=== PATIENT | male | born 1965 | race Caucasian/White ===

== ENCOUNTER 2018-01-26 13:16 | Emergency (ER) | payer OTHER ==
[~2018-01-26] VITALS: Ht 170.2 cm; Wt 81.8 kg
[~2018-01-26 13:16] MED LIST: DIVA-78 PO; FISH1CAP49 PO; RISP3 PO
[2018-01-26] MEDS ORDERED: ACET-48 PO (14:12)
[2018-01-26] MEDS ORDERED: BENZ1TAB10 PO (14:12)
[2018-01-26] MEDS ORDERED: LURA80 PO (14:12)
[2018-01-26] MEDS ORDERED: IBUP-2071 PO (14:12)
[2018-01-26] MEDS ORDERED: DIVA250T45 PO (14:12)
[2018-01-26] MEDS ORDERED: LORA2TAB2 PO (14:12)
[2018-01-26] MEDS ORDERED: RISP3 PO (14:12)
[2018-01-26] MEDS ORDERED: THIOT10 PO (14:12)
[2018-01-26] MEDS ORDERED: ASPI-1182 PO (14:12)
[2018-01-26 14:39] LABS: BASOPHILS % (AUTO) 0.6 % (0.0-2.0); EOSINOPHILS % (AUTO) 2.2 % (1.0-6.0); HEMATOCRIT 38.6 % (41-53); HEMOGLOBIN 13.1 g/dL (13.5-17.5); LYMPHOCYTES % (AUTO) 31.5 % (22.0-44.0); MEAN CORPUSCULAR HEMOGLOBIN 29.4 pg (26.0-34.0); MEAN CORPUSCULAR HGB CONC 33.9 G/dL (31.0-37.0); MEAN CORPUSCULAR VOLUME 87 fL (80-100); MONOCYTES # (AUTO) 0.6 K/uL (0.1-1.0); MONOCYTES % (AUTO) 8.7 % (2.0-9.0); NEUTROPHILS # (AUTO) 3.7 K/uL (1.8-7.7); PLATELET COUNT (AUTO) 180 K/uL (150-450); RED BLOOD CELL COUNT(AUTO) 4.45 MIL/uL (4.50-5.90); RED CELL DISTRIBUTION WIDTH 14.2 % (11.5-14.5)
[2018-01-26 14:40] LABS: AMPHET/METH SCREEN,URINE NEGATIVE (NEGATIVE); BARBITURATE SCREEN, URINE NEGATIVE (NEGATIVE); BENZODIAZEPINES SCREEN,URINE NEGATIVE (NEGATIVE); CANNABINOID SCREEN,URINE NEGATIVE (NEGATIVE); COCAINE SCREEN,URINE NEGATIVE (NEGATIVE); METHADONE SCREEN, URINE NEGATIVE (NEGATIVE); OPIATE SCREEN,URINE NEGATIVE (NEGATIVE)
[2018-01-26 14:44] LABS: PHENCYCLIDINE SCREEN,URINE NEGATIVE (NEGATIVE)
[2018-01-26 14:48] LABS: ANION GAP 5 mmol/L (8-16); CALCIUM, TOTAL 8.2 mg/dL (8.8-10.5); CARBON DIOXIDE 28 mmol/L (22-29); CHLORIDE 95 mmol/L (98-107); CREATININE 0.82 mg/dL (0.60-1.30); GLOMERULAR FILTR. RATE CALC > 60 mL/min (>60); GLUCOSE,RANDOM 92 mg/dL (70-110); POTASSIUM 3.5 mmol/L (3.5-5.1); SODIUM SERUM 128 mmol/L (136-145); UREA NITROGEN, BLOOD 2 mg/dL (7-18)
[2018-01-26 14:56] LABS: ALANINE AMINOTRANSFERASE 43 U/L (12-78); ALBUMIN 3.3 g/dL (3.4-5.0); ALKALINE PHOSPHATASE 58 U/L (46-116); ASPARTATE AMINOTRANSFERASE 28 U/L (15-37); BILIRUBIN,TOTAL 0.3 mg/dL (0.1-1.0); TOTAL PROTEIN, SERUM 6.2 g/dL (6.4-8.2); VALPROIC ACID 68 mcg/mL (50-100)
[2018-01-26] MEDS ORDERED: LORazepam 1 MG TABLET PO ONE (15:15)
[2018-01-26] MEDS ORDERED: SODIUM CHLORIDE 1 GM TABLET PO ONE (15:15)
[2018-01-26] MEDS ORDERED: SODIUM CHLORIDE 0.9% 1,000 ML IV ONE (15:15)
[2018-01-26] MEDS ORDERED: ERYTHROMYCIN 0.5% 3.5 GM TUBE OPHTHALMIC OINTMENT OU ONE (16:30)
[2018-01-26 17:21] LABS: ANION GAP 7 mmol/L (8-16); CARBON DIOXIDE 27 mmol/L (22-29); CHLORIDE 102 mmol/L (98-107); CREATININE 0.75 mg/dL (0.60-1.30); GLOMERULAR FILTR. RATE CALC > 60 mL/min (>60); GLUCOSE,RANDOM 129 mg/dL (70-110); POTASSIUM 3.6 mmol/L (3.5-5.1); SODIUM SERUM 136 mmol/L (136-145); UREA NITROGEN, BLOOD 3 mg/dL (7-18)
[2018-01-26 17:33] VITALS: BP 143/95
== END 2018-01-26 17:53 | disposition home or self-care (01) ==
LOC: EDBD 13:17 → EMS 13:17
DX: F20.9 Schizophrenia, unspecified (principal); F41.9 Anxiety disorder, unspecified; H10.9 Unspecified conjunctivitis; E87.1 Hypo-osmolality and hyponatremia; F32.9 Major depressive disorder, single episode, unspecified; F17.210 Nicotine dependence, cigarettes, uncomplicated; Z79.82 Long term (current) use of aspirin; Z79.899 Other long term (current) drug therapy
CPT/HCPCS: 36415; 80048; 80053; 80164; 80307; 85025; 99284; 99406; J7030

== ENCOUNTER 2018-03-10 17:01 | Emergency (ER) | payer OTHER ==
[~2018-03-10] VITALS: Ht 170.2 cm; Wt 81.0 kg
[~2018-03-10 17:01] MED LIST changes: +ACET-48 PO; +ASPI-1182 PO; +BENZ1TAB10 PO; +DIVA250T45 PO; +IBUP-2071 PO; +LORA2TAB2 PO; +LURA80 PO; +THIOT10 PO
[2018-03-10 17:28] LABS: GLUCOSE,POINT OF CARE 145 MG/DL (70-110)
[2018-03-10] MEDS ORDERED: HALOPERIDOL 5 MG TABLET PO ONE (17:30)
[2018-03-10 17:53] LABS: BASOPHILS % (AUTO) 0.6 % (0.0-2.0); EOSINOPHILS % (AUTO) 1.5 % (1.0-6.0); HEMATOCRIT 41.5 % (41-53); HEMOGLOBIN 14.5 g/dL (13.5-17.5); LYMPHOCYTES % (AUTO) 25.7 % (22.0-44.0); MEAN CORPUSCULAR HEMOGLOBIN 30.7 pg (26.0-34.0); MEAN CORPUSCULAR VOLUME 88 fL (80-100); MONOCYTES # (AUTO) 0.8 K/uL (0.1-1.0); MONOCYTES % (AUTO) 10.1 % (2.0-9.0); NEUTROPHILS # (AUTO) 4.9 K/uL (1.8-7.7); NEUTROPHILS % (AUTO) 62.1 % (40.0-70.0); PLATELET COUNT (AUTO) 237 K/uL (150-450); RED BLOOD CELL COUNT(AUTO) 4.74 MIL/uL (4.50-5.90); RED CELL DISTRIBUTION WIDTH 14.1 % (11.5-14.5)
[2018-03-10 18:00] LABS: ANION GAP 7 mmol/L (8-16); CALCIUM, TOTAL 8.2 mg/dL (8.8-10.5); CARBON DIOXIDE 30 mmol/L (22-29); CHLORIDE 103 mmol/L (98-107); CREATININE 1.58 mg/dL (0.60-1.30); GLOMERULAR FILTR. RATE CALC 46 mL/min (>60); GLUCOSE,RANDOM 115 mg/dL (70-110); POTASSIUM 3.6 mmol/L (3.5-5.1); SODIUM SERUM 140 mmol/L (136-145); UREA NITROGEN, BLOOD 10 mg/dL (7-18)
[2018-03-10 18:06] LABS: ALBUMIN 3.5 g/dL (3.4-5.0); ALKALINE PHOSPHATASE 88 U/L (46-116); BILIRUBIN,TOTAL 0.3 mg/dL (0.1-1.0); VALPROIC ACID 72 mcg/mL (50-100)
[2018-03-10 18:24] LABS: ASPARTATE AMINOTRANSFERASE 23 U/L (15-37)
[2018-03-10 18:36] LABS: ALANINE AMINOTRANSFERASE 38 U/L (12-78)
[2018-03-10 18:49] LABS: AMPHET/METH SCREEN,URINE NEGATIVE (NEGATIVE); BARBITURATE SCREEN, URINE NEGATIVE (NEGATIVE); BENZODIAZEPINES SCREEN,URINE NEGATIVE (NEGATIVE); CANNABINOID SCREEN,URINE NEGATIVE (NEGATIVE); COCAINE SCREEN,URINE NEGATIVE (NEGATIVE); METHADONE SCREEN, URINE NEGATIVE (NEGATIVE); OPIATE SCREEN,URINE NEGATIVE (NEGATIVE)
[2018-03-10 18:50] LABS: PHENCYCLIDINE SCREEN,URINE NEGATIVE (NEGATIVE)
[2018-03-10 19:30] VITALS: BP 133/84
== END 2018-03-10 20:04 | disposition home or self-care (01) ==
LOC: EMS 17:02
DX: F20.0 Paranoid schizophrenia (principal); F17.210 Nicotine dependence, cigarettes, uncomplicated; F41.9 Anxiety disorder, unspecified; F32.9 Major depressive disorder, single episode, unspecified; Z79.82 Long term (current) use of aspirin; Z79.899 Other long term (current) drug therapy
CPT/HCPCS: 36415; 80053; 80164; 80307; 82962; 85025; 99284; 99406; G0480

== ENCOUNTER 2018-05-29 11:33 | Inpatient (IN) | payer OTHER ==
[~2018-05-29] VITALS: Ht 175.3 cm; Wt 78.9 kg
[~2018-05-29 11:33] MED LIST changes: -DIVA-78 PO
[2018-05-29 12:00] LABS: BASOPHILS % (AUTO) 0.4 % (0.0-2.0); HEMATOCRIT 40.3 % (41-53); HEMOGLOBIN 13.3 g/dL (13.5-17.5); LYMPHOCYTES # (AUTO) 1.5 K/uL (1.0-4.8); LYMPHOCYTES % (AUTO) 21.3 % (22.0-44.0); MEAN CORPUSCULAR HEMOGLOBIN 28.8 pg (26.0-34.0); MEAN CORPUSCULAR HGB CONC 33.1 G/dL (31.0-37.0); MEAN CORPUSCULAR VOLUME 87 fL (80-100); MONOCYTES # (AUTO) 0.6 K/uL (0.1-1.0); MONOCYTES % (AUTO) 8.7 % (2.0-9.0); NEUTROPHILS # (AUTO) 4.8 K/uL (1.8-7.7); NEUTROPHILS % (AUTO) 68.6 % (40.0-70.0); PLATELET COUNT (AUTO) 312 K/uL (150-450); RED BLOOD CELL COUNT(AUTO) 4.62 MIL/uL (4.50-5.90); RED CELL DISTRIBUTION WIDTH 14.2 % (11.5-14.5)
[2018-05-29 12:19] LABS: ANION GAP 8 mmol/L (8-16); CALCIUM, TOTAL 9.8 mg/dL (8.8-10.5); CARBON DIOXIDE 31 mmol/L (22-29); CHLORIDE 104 mmol/L (98-107); CREATININE 0.85 mg/dL (0.60-1.30); GLOMERULAR FILTR. RATE CALC > 60 mL/min (>60); GLUCOSE,RANDOM 87 mg/dL (70-110); POTASSIUM 3.8 mmol/L (3.5-5.1); SODIUM SERUM 143 mmol/L (136-145); UREA NITROGEN, BLOOD 7 mg/dL (7-18)
[2018-05-29 12:27] LABS: ALANINE AMINOTRANSFERASE 90 U/L (12-78); ALKALINE PHOSPHATASE 155 U/L (46-116); ASPARTATE AMINOTRANSFERASE 35 U/L (15-37); BILIRUBIN,TOTAL 0.2 mg/dL (0.1-1.0); TOTAL PROTEIN, SERUM 7.8 g/dL (6.4-8.2)
[2018-05-29 13:09] LABS: VALPROIC ACID 75 mcg/mL (50-100)
[2018-05-29 14:23] LABS: AMPHET/METH SCREEN,URINE POSITIVE (NEGATIVE); BARBITURATE SCREEN, URINE NEGATIVE (NEGATIVE); BENZODIAZEPINES SCREEN,URINE NEGATIVE (NEGATIVE); CANNABINOID SCREEN,URINE NEGATIVE (NEGATIVE); COCAINE SCREEN,URINE NEGATIVE (NEGATIVE); METHADONE SCREEN, URINE NEGATIVE (NEGATIVE); OPIATE SCREEN,URINE NEGATIVE (NEGATIVE); PHENCYCLIDINE SCREEN,URINE NEGATIVE (NEGATIVE)
[2018-05-29] MEDS ORDERED: IOVERSOL 350 MG/ML 150 ML VIAL ONE (14:26)
[2018-05-29] MEDS ORDERED: SODIUM CHLORIDE 0.9% 100 ML ONE (14:26)
[2018-05-29] MEDS ORDERED: LOPERAMIDE HCL 2 MG CAPSULE PO PRN (17:45)
[2018-05-29] MEDS ORDERED: GuaiFENesin/D-METHORPHAN [SUGAR-FREE] 200-20MG/10 ML SYRUP UDCUP PO PRN (17:45)
[2018-05-29] MEDS ORDERED: MAGNESIUM HYDROXIDE SUSPENSION 30 ML UDCUP PO PRN ×2 (17:45→19:00)
[2018-05-29] MEDS ORDERED: ACETAMINOPHEN 325 MG TABLET PO PRN ×2 (17:45→19:00)
[2018-05-29] MEDS ORDERED: ZOLPIDEM TARTRATE 10 MG TABLET PO PRN (17:45)
[2018-05-29] MEDS ORDERED: HydrOXYzine PAMOATE 50 MG CAPSULE PO PRN (17:45)
[2018-05-29] MEDS ORDERED: MAG HYDROX/AL HYDROX/SIMETH ES 30 ML SUSPENSION UDCUP PO PRN (17:45)
[2018-05-29] MEDS ORDERED: LORazepam 2 MG TABLET PO PRN (17:45)
[2018-05-29] MEDS ORDERED: PROMETHAZINE HCL 25 MG TABLET PO PRN (17:45)
[2018-05-29] MEDS ORDERED: TUBERCULIN, PURIFIED PROTEIN DERIVATIVE 5 TU/0.1 ML SYG ID ONE (17:45)
[2018-05-29] MEDS ORDERED: OLANZapine 5 MG RAPDIS TABLET PO PRN (17:45)
[2018-05-29] MEDS ORDERED: DEXTROSE 5%-0.45% SODIUM CHL 1,000 ML IV SCH (18:59)
[2018-05-29] MEDS ORDERED: IPRATROPIUM BROMIDE 0.5 MG/2.5 ML NEB SOLUTION NEB PRN (19:00)
[2018-05-29] MEDS ORDERED: ONDANSETRON HCL 4 MG/2 ML VIAL IVP PRN (19:00)
[2018-05-29] MEDS ORDERED: OxyCODONE HCL/ACETAMINOPHEN 5-325 MG TABLET PO PRN (19:00)
[2018-05-29] MEDS ORDERED: BISACODYL 10 MG RECTAL RECTAL SUPPOSITORY PR PRN (19:00)
[2018-05-29] MEDS ORDERED: ALBUTEROL SULFATE 2.5 MG/0.5 ML NEB SOLUTION NEB PRN (19:00)
[2018-05-29] MEDS ORDERED: FentaNYL CITRATE-PF 100 MCG/2 ML VIAL ONE (20:19)
[2018-05-29] MEDS ORDERED: MIDAZOLAM HCL 5 MG/ML VIAL ONE (20:19)
[2018-05-29] MEDS ORDERED: DIVALPROEX SODIUM 500 MG ER TABLET PO SCH (21:00)
[2018-05-29] MEDS ORDERED: HEPARIN SODIUM,PORCINE 5,000 UNITS/ML VIAL SQ SCH (21:00)
[2018-05-29] MEDS ORDERED: THIAMINE HCL 100 MG TABLET PO SCH (21:00)
[2018-05-29] MEDS ORDERED: OLANZapine 5 MG RAPDIS TABLET PO SCH (21:00)
[2018-05-29 21:37] VITALS: BP 121/43
[2018-05-29 23:51] VITALS: BP 107/60
[2018-05-30 04:21] VITALS: BP 126/77
[2018-05-30 07:04] LABS: BASOPHILS % (AUTO) 0.5 % (0.0-2.0); EOSINOPHILS % (AUTO) 1.1 % (1.0-6.0); HEMOGLOBIN 12.9 g/dL (13.5-17.5); LYMPHOCYTES # (AUTO) 1.5 K/uL (1.0-4.8); LYMPHOCYTES % (AUTO) 23.2 % (22.0-44.0); MEAN CORPUSCULAR HEMOGLOBIN 29.2 pg (26.0-34.0); MEAN CORPUSCULAR HGB CONC 33.9 G/dL (31.0-37.0); MEAN CORPUSCULAR VOLUME 86 fL (80-100); MONOCYTES # (AUTO) 0.7 K/uL (0.1-1.0); MONOCYTES % (AUTO) 10.7 % (2.0-9.0); NEUTROPHILS # (AUTO) 4.1 K/uL (1.8-7.7); NEUTROPHILS % (AUTO) 64.5 % (40.0-70.0); PLATELET COUNT (AUTO) 297 K/uL (150-450); RED BLOOD CELL COUNT(AUTO) 4.42 MIL/uL (4.50-5.90); RED CELL DISTRIBUTION WIDTH 14.1 % (11.5-14.5)
[2018-05-30 07:06] LABS: INR 0.9 (0.9-1.1); PROTHROMBIN TIME 9.6 SEC (9.4-11.6)
[2018-05-30 07:16] LABS: ALANINE AMINOTRANSFERASE 65 U/L (12-78); ALBUMIN 2.6 g/dL (3.4-5.0); ALKALINE PHOSPHATASE 130 U/L (46-116); ANION GAP 8 mmol/L (8-16); ASPARTATE AMINOTRANSFERASE 23 U/L (15-37); BILIRUBIN,TOTAL 0.1 mg/dL (0.1-1.0); CALCIUM, TOTAL 8.7 mg/dL (8.8-10.5); CARBON DIOXIDE 28 mmol/L (22-29); CHLORIDE 106 mmol/L (98-107); CREATININE 0.79 mg/dL (0.60-1.30); GLOMERULAR FILTR. RATE CALC > 60 mL/min (>60); GLUCOSE,RANDOM 96 mg/dL (70-110); PHOSPHORUS 3.2 mg/dL (2.5-4.9); POTASSIUM 3.9 mmol/L (3.5-5.1); SODIUM SERUM 142 mmol/L (136-145)
[2018-05-30 07:36] LABS: UREA NITROGEN, BLOOD 10 mg/dL (7-18)
[2018-05-30 07:45] VITALS: BP 125/77
[2018-05-30] MEDS ORDERED: MULTIVITAMINS WITH MINERALS, THERAPEUTIC TABLET PO SCH (09:00)
[2018-05-30] MEDS ORDERED: FLUoxetine HCL 20 MG CAPSULE PO SCH (09:00)
[2018-05-30] MEDS ORDERED: NALTREXONE HCL 50 MG TABLET PO SCH (09:00)
[2018-05-30] MEDS ORDERED: FOLIC ACID 1 MG TABLET PO SCH (09:00)
[2018-05-30] MEDS: PANTOPRAZOLE SODIUM 40 MG/VIAL IVP SCH (10:36)
[2018-05-30 10:50] VITALS: BP 144/87
[2018-05-30] MEDS ORDERED: PEG 3350/NA SULF,BICARB,CL/KCL 4000 ML SOLUTION PO ONE (14:45)
[2018-05-30 15:21] VITALS: BP 135/79
[2018-05-30 23:51] VITALS: BP 126/70
[2018-05-31 04:24] VITALS: BP 128/75
[2018-05-31 08:00] VITALS: BP 120/75
[2018-05-31] MEDS: PANTOPRAZOLE SODIUM 40 MG/VIAL IVP SCH (08:34)
[2018-05-31 12:00] VITALS: BP 112/70
[2018-05-31] MEDS: MORPHINE SULFATE 4 MG/ML SYRINGE IVP PRN (14:00)
[2018-05-31 15:46] VITALS: BP 118/68
[2018-05-31 19:30] VITALS: BP 107/73
[2018-05-31] MEDS: POLYETHYLENE GLYCOL 3350 17 GM PACKET PO SCH (21:57)
[2018-05-31] MEDS: ZOLPIDEM TARTRATE 5 MG TABLET PO PRN (21:57)
[2018-05-31 23:30] VITALS: BP 104/56
[2018-06-01 04:00] VITALS: BP 118/77
[2018-06-01] MEDS: POLYETHYLENE GLYCOL 3350 17 GM PACKET PO SCH ×2 (07:51→21:51)
[2018-06-01] MEDS: PANTOPRAZOLE SODIUM 40 MG/VIAL IVP SCH (07:51)
[2018-06-01 08:04] VITALS: BP 104/82
[2018-06-01 12:07] VITALS: BP 145/91
[2018-06-01] MEDS: MORPHINE SULFATE 4 MG/ML SYRINGE IVP PRN (14:03)
[2018-06-01 16:12] VITALS: BP 139/94
[2018-06-01 21:49] VITALS: BP 124/85
[2018-06-01] MEDS: ZOLPIDEM TARTRATE 5 MG TABLET PO PRN (21:51)
[2018-06-02 00:09] VITALS: BP 109/66
[2018-06-02 05:30] VITALS: BP 126/50
[2018-06-02 06:47] LABS: BASOPHILS % (AUTO) 0.4 % (0.0-2.0); EOSINOPHILS % (AUTO) 1.1 % (1.0-6.0); HEMATOCRIT 42.6 % (41-53); HEMOGLOBIN 14.7 g/dL (13.5-17.5); LYMPHOCYTES # (AUTO) 1.6 K/uL (1.0-4.8); LYMPHOCYTES % (AUTO) 27.7 % (22.0-44.0); MEAN CORPUSCULAR HEMOGLOBIN 28.7 pg (26.0-34.0); MEAN CORPUSCULAR HGB CONC 34.5 G/dL (31.0-37.0); MEAN CORPUSCULAR VOLUME 83 fL (80-100); MONOCYTES # (AUTO) 0.6 K/uL (0.1-1.0); NEUTROPHILS # (AUTO) 3.5 K/uL (1.8-7.7); NEUTROPHILS % (AUTO) 59.8 % (40.0-70.0); PLATELET COUNT (AUTO) 373 K/uL (150-450); RED BLOOD CELL COUNT(AUTO) 5.12 MIL/uL (4.50-5.90); RED CELL DISTRIBUTION WIDTH 13.7 % (11.5-14.5)
[2018-06-02 07:16] LABS: ANION GAP 10 mmol/L (8-16); CALCIUM, TOTAL 9.3 mg/dL (8.8-10.5); CARBON DIOXIDE 26 mmol/L (22-29); CHLORIDE 101 mmol/L (98-107); CREATININE 0.84 mg/dL (0.60-1.30); GLOMERULAR FILTR. RATE CALC > 60 mL/min (>60); GLUCOSE,RANDOM 107 mg/dL (70-110); POTASSIUM 4.3 mmol/L (3.5-5.1); SODIUM SERUM 137 mmol/L (136-145); UREA NITROGEN, BLOOD 9 mg/dL (7-18)
[2018-06-02 07:55] VITALS: BP 122/58
[2018-06-02] MEDS: PANTOPRAZOLE SODIUM 40 MG/VIAL IVP SCH (09:23)
[2018-06-02] MEDS: POLYETHYLENE GLYCOL 3350 17 GM PACKET PO SCH (09:23)
[2018-06-02] MEDS: MORPHINE SULFATE 4 MG/ML SYRINGE IVP PRN (09:39)
[2018-06-02 11:08] VITALS: BP 118/56
[2018-06-02] MEDS ORDERED: POLY238P2 PO (12:14)
[2018-06-02 15:43] VITALS: BP 120/58
[2018-06-02 17:14] LABS: GLUCOMETER DEV NAME(LOC) 5N.1; GLUCOSE,POINT OF CARE 120 MG/DL (70-110)
== END 2018-06-02 17:20 | disposition home or self-care (01) | DRG 254 ==
LOC: EMS 11:33 → 5N 18:40
PROVIDERS: ADMIT Internal Medicine; ATTEND Internal Medicine
PROC: 0DC68ZZ Extirpation of Matter from Stomach, Via Natural or Artificial Opening Endoscopic (ICD-10-PCS; principal; 2018-05-29 19:30)
DX: T18.2XXA Foreign body in stomach, initial encounter (principal); R45.851 Suicidal ideations; F25.0 Schizoaffective disorder, bipolar type; F41.8 Other specified anxiety disorders; E78.5 Hyperlipidemia, unspecified; F15.10 Other stimulant abuse, uncomplicated; F41.9 Anxiety disorder, unspecified; F17.210 Nicotine dependence, cigarettes, uncomplicated; F60.0 Paranoid personality disorder; J98.11 Atelectasis; X58.XXXA Exposure to other specified factors, initial encounter; K21.9 Gastro-esophageal reflux disease without esophagitis; K59.00 Constipation, unspecified; F31.60 Bipolar disorder, current episode mixed, unspecified; Z59.9 Problem related to housing and economic circumstances, unspecified; Z65.3 Problems related to other legal circumstances; Z91.19 Patient's noncompliance with other medical treatment and regimen; Y93.89 Activity, other specified; Y92.89 Other specified places as the place of occurrence of the external cause; Y99.8 Other external cause status
CPT/HCPCS: 74018; 74019; 74176; 83735; 84100; 88300; C9113; G0378; G0480; J2250; J2270; J3010; J7050

== ENCOUNTER 2018-07-04 12:20 | Emergency (ER) | payer OTHER ==
[~2018-07-04] VITALS: Ht 175.3 cm; Wt 76.9 kg
[~2018-07-04 12:20] MED LIST changes: -ACET-48 PO; -IBUP-2071 PO; +POLY238P2 PO
[2018-07-04 13:49] LABS: BASOPHILS % (AUTO) 0.4 % (0.0-2.0); EOSINOPHILS % (AUTO) 1.2 % (1.0-6.0); HEMATOCRIT 39.4 % (41-53); HEMOGLOBIN 13.2 g/dL (13.5-17.5); LYMPHOCYTES # (AUTO) 1.8 K/uL (1.0-4.8); LYMPHOCYTES % (AUTO) 31.2 % (22.0-44.0); MEAN CORPUSCULAR HEMOGLOBIN 28.8 pg (26.0-34.0); MEAN CORPUSCULAR HGB CONC 33.6 G/dL (31.0-37.0); MEAN CORPUSCULAR VOLUME 86 fL (80-100); MONOCYTES # (AUTO) 0.4 K/uL (0.1-1.0); MONOCYTES % (AUTO) 7.3 % (2.0-9.0); NEUTROPHILS # (AUTO) 3.5 K/uL (1.8-7.7); NEUTROPHILS % (AUTO) 59.9 % (40.0-70.0); PLATELET COUNT (AUTO) 242 K/uL (150-450); RED CELL DISTRIBUTION WIDTH 14.4 % (11.5-14.5)
[2018-07-04 13:58] LABS: AMPHET/METH SCREEN,URINE NEGATIVE (NEGATIVE); BARBITURATE SCREEN, URINE NEGATIVE (NEGATIVE); BENZODIAZEPINES SCREEN,URINE NEGATIVE (NEGATIVE); CANNABINOID SCREEN,URINE NEGATIVE (NEGATIVE); COCAINE SCREEN,URINE NEGATIVE (NEGATIVE); METHADONE SCREEN, URINE NEGATIVE (NEGATIVE); OPIATE SCREEN,URINE NEGATIVE (NEGATIVE); PHENCYCLIDINE SCREEN,URINE NEGATIVE (NEGATIVE)
[2018-07-04 14:03] LABS: ANION GAP 8 mmol/L (8-16); CALCIUM, TOTAL 9.2 mg/dL (8.8-10.5); CARBON DIOXIDE 31 mmol/L (22-29); CHLORIDE 105 mmol/L (98-107); CREATININE 0.78 mg/dL (0.60-1.30); GLOMERULAR FILTR. RATE CALC > 60 mL/min (>60); GLUCOSE,RANDOM 73 mg/dL (70-110); POTASSIUM 3.6 mmol/L (3.5-5.1); SODIUM SERUM 144 mmol/L (136-145); UREA NITROGEN, BLOOD 8 mg/dL (7-18)
[2018-07-04 14:08] LABS: ALANINE AMINOTRANSFERASE 66 U/L (12-78); ALBUMIN 3.4 g/dL (3.4-5.0); ALKALINE PHOSPHATASE 87 U/L (46-116); ASPARTATE AMINOTRANSFERASE 29 U/L (15-37); BILIRUBIN,TOTAL 0.1 mg/dL (0.1-1.0); TOTAL PROTEIN, SERUM 6.6 g/dL (6.4-8.2)
[2018-07-04 16:08] VITALS: BP 142/90
[2018-07-04] MEDS ORDERED: RisperiDONE 1 MG TABLET PO ONE (16:30)
== END 2018-07-04 16:54 | disposition home or self-care (01) ==
LOC: EMS 12:21
DX: F20.0 Paranoid schizophrenia (principal); R10.9 Unspecified abdominal pain; F17.210 Nicotine dependence, cigarettes, uncomplicated; F41.9 Anxiety disorder, unspecified; F32.9 Major depressive disorder, single episode, unspecified; F20.9 Schizophrenia, unspecified; Z79.82 Long term (current) use of aspirin
CPT/HCPCS: 36415; 71045; 74018; 80053; 80307; 82962; 85025; 99285; 99406; G0480

== ENCOUNTER 2018-12-12 01:07 | Emergency (ER) | payer OTHER ==
[~2018-12-12] VITALS: Ht 165.1 cm; Wt 72.0 kg
[2018-12-12 02:25] LABS: BASOPHILS % (AUTO) 0.4 % (0.0-2.0); EOSINOPHILS % (AUTO) 0.4 % (1.0-6.0); HEMATOCRIT 39.8 % (41-53); HEMOGLOBIN 12.5 g/dL (13.5-17.5); LYMPHOCYTES # (AUTO) 1.6 K/uL (1.0-4.8); LYMPHOCYTES % (AUTO) 19.8 % (22.0-44.0); MEAN CORPUSCULAR HEMOGLOBIN 25.1 pg (26.0-34.0); MEAN CORPUSCULAR HGB CONC 31.5 G/dL (31.0-37.0); MEAN CORPUSCULAR VOLUME 80 fL (80-100); MONOCYTES # (AUTO) 0.4 K/uL (0.1-1.0); MONOCYTES % (AUTO) 5.3 % (2.0-9.0); NEUTROPHILS % (AUTO) 74.1 % (40.0-70.0); PLATELET COUNT (AUTO) 256 K/uL (150-450); RED CELL DISTRIBUTION WIDTH 15.6 % (11.5-14.5)
[2018-12-12 02:33] LABS: AMPHET/METH SCREEN,URINE NEGATIVE (NEGATIVE); BARBITURATE SCREEN, URINE NEGATIVE (NEGATIVE); BENZODIAZEPINES SCREEN,URINE NEGATIVE (NEGATIVE); CANNABINOID SCREEN,URINE NEGATIVE (NEGATIVE); COCAINE SCREEN,URINE NEGATIVE (NEGATIVE); METHADONE SCREEN, URINE NEGATIVE (NEGATIVE); OPIATE SCREEN,URINE NEGATIVE (NEGATIVE)
[2018-12-12 02:33] LABS: ANION GAP 13 mmol/L (8-16); CALCIUM, TOTAL 8.9 mg/dL (8.8-10.5); CARBON DIOXIDE 22 mmol/L (22-29); CHLORIDE 104 mmol/L (98-107); CREATININE 0.89 mg/dL (0.60-1.30); GLOMERULAR FILTR. RATE CALC > 60 mL/min (>60); GLUCOSE,RANDOM 137 mg/dL (70-110); POTASSIUM 3.1 mmol/L (3.5-5.1); SODIUM SERUM 139 mmol/L (136-145); UREA NITROGEN, BLOOD 7 mg/dL (7-18)
[2018-12-12 02:35] LABS: PHENCYCLIDINE SCREEN,URINE NEGATIVE (NEGATIVE)
[2018-12-12 02:39] LABS: ALANINE AMINOTRANSFERASE 53 U/L (12-78); ALBUMIN 3.8 g/dL (3.4-5.0); ALKALINE PHOSPHATASE 107 U/L (46-116); ASPARTATE AMINOTRANSFERASE 27 U/L (15-37); BILIRUBIN,TOTAL 0.2 mg/dL (0.1-1.0); TOTAL PROTEIN, SERUM 7.1 g/dL (6.4-8.2)
[2018-12-12 02:50] VITALS: BP 126/87
== END 2018-12-12 03:10 | disposition home or self-care (01) ==
LOC: EMS 01:10
DX: R51 Headache (principal); F41.9 Anxiety disorder, unspecified; F32.9 Major depressive disorder, single episode, unspecified; F20.9 Schizophrenia, unspecified; F17.210 Nicotine dependence, cigarettes, uncomplicated; F19.90 Other psychoactive substance use, unspecified, uncomplicated; Z79.82 Long term (current) use of aspirin
CPT/HCPCS: 36415; 80053; 80307; 85025; 99283; G0480

== ENCOUNTER 2019-02-07 09:50 | Inpatient (IN) | payer MEDICAID, OTHER ==
[~2019-02-07] VITALS: Ht 182.9 cm; Wt 70.5 kg
[2019-02-07] MEDS ORDERED: SODIUM CHLORIDE 0.9% 1,000 ML IV ONE (10:30)
[2019-02-07 11:00] LABS: BASOPHILS % (AUTO) 0.8 % (0.0-2.0); EOSINOPHILS % (AUTO) 0.9 % (1.0-6.0); HEMATOCRIT 43.2 % (41-53); HEMOGLOBIN 14.2 g/dL (13.5-17.5); LYMPHOCYTES # (AUTO) 1.6 K/uL (1.0-4.8); LYMPHOCYTES % (AUTO) 33.2 % (22.0-44.0); MEAN CORPUSCULAR HEMOGLOBIN 25.8 pg (26.0-34.0); MEAN CORPUSCULAR HGB CONC 32.8 G/dL (31.0-37.0); MEAN CORPUSCULAR VOLUME 79 fL (80-100); MONOCYTES # (AUTO) 0.4 K/uL (0.1-1.0); MONOCYTES % (AUTO) 7.3 % (2.0-9.0); NEUTROPHILS # (AUTO) 2.8 K/uL (1.8-7.7); NEUTROPHILS % (AUTO) 57.8 % (40.0-70.0); PLATELET COUNT (AUTO) 325 K/uL (150-450); RED BLOOD CELL COUNT(AUTO) 5.48 MIL/uL (4.50-5.90); RED CELL DISTRIBUTION WIDTH 18.3 % (11.5-14.5)
[2019-02-07 11:10] LABS: PROTHROMBIN TIME 10.8 SEC (9.4-11.6)
[2019-02-07 11:11] LABS: ANION GAP 8 mmol/L (8-16); CALCIUM, TOTAL 9.4 mg/dL (8.8-10.5); CARBON DIOXIDE 27 mmol/L (22-29); CHLORIDE 98 mmol/L (98-107); CREATININE 1.01 mg/dL (0.60-1.30); GLOMERULAR FILTR. RATE CALC > 60 mL/min (>60); GLUCOSE,RANDOM 87 mg/dL (70-110); POTASSIUM 4.1 mmol/L (3.5-5.1); SODIUM SERUM 133 mmol/L (136-145); UREA NITROGEN, BLOOD 16 mg/dL (7-18)
[2019-02-07 11:19] LABS: LACTIC ACID 0.5 mmol/L (0.4-2.0)
[2019-02-07 11:25] LABS: B-TYPE NATRIURETIC PEPTIDE 12 pg/mL (0-100); SALICYLATE 1.6 mg/dL (2.8-20.0)
[2019-02-07 11:35] LABS: ACETAMINOPHEN 4 mcg/mL (10-30); ALANINE AMINOTRANSFERASE 26 U/L (12-78); ALBUMIN 3.9 g/dL (3.4-5.0); ALKALINE PHOSPHATASE 94 U/L (46-116); ASPARTATE AMINOTRANSFERASE 21 U/L (15-37); BILIRUBIN,TOTAL 0.4 mg/dL (0.1-1.0); CREATINE KINASE, TOTAL ONLY 201 U/L (39-308); TOTAL PROTEIN, SERUM 7.5 g/dL (6.4-8.2)
[2019-02-07 11:54] LABS: VALPROIC ACID < 3 mcg/mL (50-100)
[2019-02-07] MEDS ORDERED: ACETAMINOPHEN 325 MG TABLET PO PRN (13:30)
[2019-02-07] MEDS ORDERED: 0.9% SODIUM CHLORIDE 10 ML SYRINGE IVP PRN (13:30)
[2019-02-07] MEDS ORDERED: ONDANSETRON HCL 4 MG/2 ML VIAL IVP PRN (13:30)
[2019-02-07] MEDS ORDERED: ZOLPIDEM TARTRATE 10 MG TABLET PO PRN (14:45)
[2019-02-07] MEDS ORDERED: HALOPERIDOL 5 MG TABLET PO PRN (14:45)
[2019-02-07 15:09] VITALS: BP 111/76
[2019-02-07 16:20] VITALS: BP 110/70
[2019-02-08] MEDS ORDERED: IBUPROFEN 600 MG TABLET PO PRN (09:00)
[2019-02-08] MEDS ORDERED: ALBUTEROL SULFATE HFA 90 MCG/PUFF 8 GM INHALER IH PRN (09:00)
[2019-02-08] MEDS ORDERED: BACITRACIN 28.4 GM OINTMENT TP PRN (09:00)
[2019-02-08] MEDS ORDERED: OMEPRAZOLE 20 MG CAPSULE PO PRN (09:00)
[2019-02-08] MEDS ORDERED: DOCUSATE SODIUM 100 MG CAPSULE PO PRN (09:00)
[2019-02-08] MEDS ORDERED: LOPERAMIDE HCL 2 MG CAPSULE PO PRN (09:00)
[2019-02-08] MEDS ORDERED: PETROLATUM,WHITE 28 GM JELLY TP PRN (09:00)
[2019-02-08] MEDS ORDERED: OMEGA-3/DHA/EPA/FISH OIL 1,000 MG CAPSULE PO SCH (09:00)
[2019-02-08] MEDS ORDERED: ONDANSETRON HCL 4 MG TABLET PO PRN (09:00)
[2019-02-08] MEDS ORDERED: CloNIDine HCL 0.1 MG TABLET PO PRN (09:00)
[2019-02-08] MEDS ORDERED: ACETAMINOPHEN 325 MG TABLET PO PRN (09:00)
[2019-02-08] MEDS ORDERED: MAGNESIUM HYDROXIDE SUSPENSION 30 ML UDCUP PO PRN (09:00)
[2019-02-08] MEDS ORDERED: MAG HYDROX/AL HYDROX/SIMETH ES 30 ML SUSPENSION UDCUP PO PRN (09:00)
[2019-02-08] MEDS ORDERED: BENZOCAINE/MENTHOL LOZENGE MM PRN (09:00)
[2019-02-08 09:35] VITALS: BP 134/84
[2019-02-08] MEDS: ASPIRIN 81 MG EC TABLET PO SCH (09:44)
[2019-02-08] MEDS: DIVALPROEX SODIUM 250 MG ER TABLET PO SCH ×3 (09:44→16:31)
[2019-02-08] MEDS: POLYETHYLENE GLYCOL 3350 17 GM PACKET PO SCH ×2 (09:54→16:31)
[2019-02-08] MEDS: LORazepam 2 MG TABLET PO PRN (16:31)
[2019-02-08 17:33] VITALS: BP 108/69
[2019-02-09 06:53] VITALS: BP 114/83
[2019-02-09] MEDS: ASPIRIN 81 MG EC TABLET PO SCH (08:23)
[2019-02-09] MEDS: DIVALPROEX SODIUM 250 MG ER TABLET PO SCH ×3 (08:23→16:46)
[2019-02-09] MEDS: SODIUM CHLORIDE 1 GM TABLET PO SCH ×3 (08:24→16:45)
[2019-02-09] MEDS: OMEGA-3/DHA/EPA/FISH OIL 1,000 MG CAPSULE PO SCH (08:24)
[2019-02-09] MEDS: POLYETHYLENE GLYCOL 3350 17 GM PACKET PO SCH ×2 (08:24→16:45)
[2019-02-09 09:22] VITALS: BP 122/76
[2019-02-09 16:53] VITALS: BP 115/55
[2019-02-09] MEDS ORDERED: OMEG-135 PO (18:42)
[2019-02-09] MEDS ORDERED: PALIPERIDONE PALMITATE 234 MG/1.5 ML SYRINGE IM SCH (18:45)
[2019-02-10 02:10] VITALS: BP 134/63
[2019-02-10] MEDS: OMEGA-3/DHA/EPA/FISH OIL 1,000 MG CAPSULE PO SCH (09:05)
[2019-02-10] MEDS: POLYETHYLENE GLYCOL 3350 17 GM PACKET PO SCH ×2 (09:05→16:18)
[2019-02-10] MEDS: DIVALPROEX SODIUM 250 MG ER TABLET PO SCH ×3 (09:05→16:18)
[2019-02-10] MEDS: SODIUM CHLORIDE 1 GM TABLET PO SCH ×3 (09:05→16:18)
[2019-02-10] MEDS: ASPIRIN 81 MG EC TABLET PO SCH (09:05)
[2019-02-10 10:10] VITALS: BP 112/75
[2019-02-10 16:12] VITALS: BP 118/71
[2019-02-11] MEDS: OMEGA-3/DHA/EPA/FISH OIL 1,000 MG CAPSULE PO SCH (09:05)
[2019-02-11] MEDS: ASPIRIN 81 MG EC TABLET PO SCH (09:05)
[2019-02-11] MEDS: DIVALPROEX SODIUM 250 MG ER TABLET PO SCH ×3 (09:05→16:45)
[2019-02-11] MEDS: POLYETHYLENE GLYCOL 3350 17 GM PACKET PO SCH ×2 (09:06→16:45)
[2019-02-11 09:20] VITALS: BP 112/74
[2019-02-11 20:49] VITALS: BP 110/72
[2019-02-12 05:35] VITALS: BP 99/66
[2019-02-12] MEDS: DIVALPROEX SODIUM 250 MG ER TABLET PO SCH ×3 (09:16→16:22)
[2019-02-12] MEDS: OMEGA-3/DHA/EPA/FISH OIL 1,000 MG CAPSULE PO SCH (09:16)
[2019-02-12] MEDS: POLYETHYLENE GLYCOL 3350 17 GM PACKET PO SCH ×2 (09:16→16:22)
[2019-02-12] MEDS: ASPIRIN 81 MG EC TABLET PO SCH (09:16)
[2019-02-12 12:10] VITALS: BP 112/61
[2019-02-12] MEDS: LORazepam 2 MG TABLET PO PRN (16:22)
[2019-02-12 17:44] VITALS: BP 124/88
[2019-02-13 03:49] VITALS: BP 121/73
[2019-02-13 08:58] VITALS: BP 130/69
[2019-02-13] MEDS: OMEGA-3/DHA/EPA/FISH OIL 1,000 MG CAPSULE PO SCH (09:31)
[2019-02-13] MEDS: DIVALPROEX SODIUM 250 MG ER TABLET PO SCH ×3 (09:31→16:21)
[2019-02-13] MEDS: ASPIRIN 81 MG EC TABLET PO SCH (09:31)
[2019-02-13] MEDS: POLYETHYLENE GLYCOL 3350 17 GM PACKET PO SCH ×2 (09:32→16:21)
[2019-02-13] MEDS: LORazepam 2 MG TABLET PO PRN (16:21)
[2019-02-13 16:41] VITALS: BP 112/62
[2019-02-14 00:14] VITALS: BP 126/73
[2019-02-14] MEDS ORDERED: PHENYLEPHRINE/SHK LV/MIN OIL/PET 57 GM OINTMENT TP PRN (08:30)
[2019-02-14] MEDS: POLYETHYLENE GLYCOL 3350 17 GM PACKET PO SCH (08:35)
[2019-02-14] MEDS: ASPIRIN 81 MG EC TABLET PO SCH (08:35)
[2019-02-14] MEDS: DIVALPROEX SODIUM 250 MG ER TABLET PO SCH (08:35)
[2019-02-14] MEDS: OMEGA-3/DHA/EPA/FISH OIL 1,000 MG CAPSULE PO SCH (08:35)
[2019-02-14 08:40] VITALS: BP 114/58
[2019-02-14] MEDS ORDERED: PALI234D IM (10:09)
[2019-02-14] MEDS ORDERED: DIVA-76 PO (11:44)
== END 2019-02-14 10:50 | disposition home or self-care (01) | DRG 750 ==
LOC: EMS 09:51 → 3EI 14:29
PROVIDERS: ADMIT Psychiatry & Neurology Psychiatry; ATTEND Psychiatry & Neurology Psychiatry
DX: F20.0 Paranoid schizophrenia (principal); E87.1 Hypo-osmolality and hyponatremia; E78.5 Hyperlipidemia, unspecified; F17.200 Nicotine dependence, unspecified, uncomplicated; G47.00 Insomnia, unspecified; K59.00 Constipation, unspecified; F41.9 Anxiety disorder, unspecified; F19.10 Other psychoactive substance abuse, uncomplicated; T39.1X2A Poisoning by 4-Aminophenol derivatives, intentional self-harm, initial encounter; Z56.0 Unemployment, unspecified; Y92.89 Other specified places as the place of occurrence of the external cause; Z71.51 Drug abuse counseling and surveillance of drug abuser
CPT/HCPCS: 83605; 83735; 84295; 93005; G0480; G0481; J7030

== ENCOUNTER 2019-09-27 18:28 | Emergency (ER) | payer MEDICAID, OTHER ==
[~2019-09-27] VITALS: Ht 172.7 cm; Wt 75.0 kg
[~2019-09-27 18:28] MED LIST changes: +ASPI-1111 PO; -ASPI-1182 PO; -BENZ1TAB10 PO; +DIVA-78 PO; -DIVA250T45 PO; -FISH1CAP49 PO; -LORA2TAB2 PO; -LURA80 PO; +OMEG-135 PO; +PALI234D IM; -POLY238P2 PO; -THIOT10 PO
[2019-09-27 20:13] VITALS: BP 126/95
== END 2019-09-27 21:07 | disposition left against medical advice (07) ==
LOC: EMS 18:29
DX: F10.129 Alcohol abuse with intoxication, unspecified (principal); Z53.21 Procedure and treatment not carried out due to patient leaving prior to being seen by health care provider

== ENCOUNTER 2023-09-07 07:21 | Day surgery (SDC) | payer OTHER ==
[~2023-09-07] VITALS: Ht 180.3 cm; Wt 98.6 kg
[~2023-09-07 07:21] MED LIST changes: -ASPI-1111 PO; +ATOR40TA28 PO; +CLOZ100T61 PO; -DIVA-78 PO; +ESCI-8 PO; +GABA-1201 PO; +INSLAN SQ; +INSU100V SQ; +LACT10SO10 PO; +METF-1211 PO; +OLAN10TA74 PO; -OMEG-135 PO; +PANT-31 PO; -RISP3 PO; +RISP3TAB35 PO; +SITA100 PO; +SODIUM CHLORIDE 0.9% 1,000 ML ONE
[2023-09-07] MEDS: SODIUM CHLORIDE 0.9% 1,000 ML IV ONE (09:05)
[2023-09-07 09:15] LABS: GLUCOMETER DEV NAME(LOC) SDS.; GLUCOSE,POINT OF CARE 212 MG/DL (70-110)
[2023-09-07] MEDS ORDERED: PROPOFOL 1% 20 ML VIAL IVP ONE (11:00)
[2023-09-07] MEDS ORDERED: LIDOCAINE/PF 2% 5 ML VIAL IM ONE (12:00)
[2023-09-07] MEDS ORDERED: OXYGEN THERAPY IH SCH (20:00)
== END 2023-09-07 11:15 | disposition home or self-care (01) ==
LOC: SURGERY 07:21
PROVIDERS: ATTEND Specialist
DX: R19.5 Other fecal abnormalities (principal); K62.5 Hemorrhage of anus and rectum; E11.9 Type 2 diabetes mellitus without complications; I10 Essential (primary) hypertension; K63.5 Polyp of colon; F20.9 Schizophrenia, unspecified; Z87.891 Personal history of nicotine dependence; Z79.4 Long term (current) use of insulin; Z79.899 Other long term (current) drug therapy; Z98.890 Other specified postprocedural states
CPT/HCPCS: 45385; 82962; 88305; C1769; J2704; J3490; J7030